=== PATIENT | male | born 1990 | race Caucasian/White ===

== ENCOUNTER 2022-02-06 14:44 | Inpatient (IN) | payer MEDICAID ==
[~2022-02-06] VITALS: Ht 185.4 cm; Wt 66.7 kg
[~2022-02-06 14:44] MED LIST: PROP10TA10 PO; RISP3TAB35 PO; TRAZ150T80 PO
[2022-02-06] MEDS ORDERED: RISP2TAB45 PO (15:01)
[2022-02-06] MEDS ORDERED: [UNRECOGNIZED DRUG - OTHER] PO (15:01)
[2022-02-06 15:12] LABS: BASOPHILS % (AUTO) 0.4 % (0.0-2.0); EOSINOPHILS % (AUTO) 0.2 % (1.0-6.0); HEMATOCRIT 33.7 % (41-53); HEMOGLOBIN 11.7 g/dL (13.5-17.5); LYMPHOCYTES # (AUTO) 2.5 K/uL (1.0-4.8); LYMPHOCYTES % (AUTO) 34.7 % (22.0-44.0); MEAN CORPUSCULAR HEMOGLOBIN 32.7 pg (26.0-34.0); MEAN CORPUSCULAR HGB CONC 34.7 G/dL (31.0-37.0); MEAN CORPUSCULAR VOLUME 94 fL (80-100); MONOCYTES # (AUTO) 0.4 K/uL (0.1-1.0); MONOCYTES % (AUTO) 5.3 % (2.0-9.0); NEUTROPHILS # (AUTO) 4.2 K/uL (1.8-7.7); NEUTROPHILS % (AUTO) 59.4 % (40.0-70.0); PLATELET COUNT (AUTO) 159 K/uL (150-450); RED BLOOD CELL COUNT(AUTO) 3.57 MIL/uL (4.50-5.90); RED CELL DISTRIBUTION WIDTH 14.7 % (11.5-14.5)
[2022-02-06 16:47] LABS: AMPHET/METH SCREEN,URINE NEGATIVE (NEGATIVE); BARBITURATE SCREEN, URINE NEGATIVE (NEGATIVE); BENZODIAZEPINES SCREEN,URINE NEGATIVE (NEGATIVE); CANNABINOID SCREEN,URINE NEGATIVE (NEGATIVE); COCAINE SCREEN,URINE NEGATIVE (NEGATIVE); METHADONE SCREEN, URINE NEGATIVE (NEGATIVE); OPIATE SCREEN,URINE NEGATIVE (NEGATIVE)
[2022-02-06 16:49] LABS: PHENCYCLIDINE SCREEN,URINE NEGATIVE (NEGATIVE)
[2022-02-06 17:20] LABS: ANION GAP 7 mmol/L (8-16); CALCIUM, TOTAL 8.3 mg/dL (8.8-10.5); CARBON DIOXIDE 30 mmol/L (22-29); CHLORIDE 100 mmol/L (98-107); CREATININE 0.86 mg/dL (0.60-1.30); GLUCOSE,RANDOM 66 mg/dL (70-110); SODIUM SERUM 137 mmol/L (136-145); UREA NITROGEN, BLOOD 15 mg/dL (7-18)
[2022-02-06 17:21] LABS: GLOMERULAR FILTR. RATE CALC > 60 mL/min (>60)
[2022-02-06 17:26] LABS: ALANINE AMINOTRANSFERASE 43 U/L (12-78); ALBUMIN 2.9 g/dL (3.4-5.0); ALKALINE PHOSPHATASE 88 U/L (46-116); ASPARTATE AMINOTRANSFERASE 45 U/L (15-37); BILIRUBIN,TOTAL 0.3 mg/dL (0.1-1.0); TOTAL PROTEIN, SERUM 6.3 g/dL (6.4-8.2)
[2022-02-06 18:37] LABS: COVID AG,FIA SOURCE NASAL SWAB
[2022-02-06] MEDS ORDERED: ZOLPIDEM TARTRATE 10 MG TABLET PO PRN (19:00)
[2022-02-06] MEDS ORDERED: LORazepam 2 MG TABLET PO PRN (19:00)
[2022-02-06 21:42] LABS: APPEARANCE,URINE CLEAR (CLEAR); BILIRUBIN,URINE NEGATIVE (NEGATIVE); GLUCOSE, URINE (UA) NEGATIVE (NEGATIVE); KETONES,URINE NEGATIVE (NEGATIVE); LEUKOCYTE ESTERASE ,URINE NEGATIVE (NEGATIVE); NITRATE,URINE NEGATIVE (NEGATIVE); OCCULT BLOOD,URINE NEGATIVE (NEGATIVE); PH,URINE 6.5 (5.0-8.0); PROTEIN,URINE NEGATIVE (NEGATIVE); SPECIFIC GRAVITIY, URINE 1.008 (1.003-1.030); UROBILINOGEN,URINE <=1.0 mg/dL (<=1.0)
[2022-02-06 23:58] VITALS: BP 139/86
[2022-02-07] MEDS ORDERED: ONDANSETRON HCL 4 MG TABLET PO PRN (06:45)
[2022-02-07] MEDS ORDERED: ALBUTEROL SULFATE HFA 90 MCG/PUFF 8 GM INHALER IH PRN (06:45)
[2022-02-07] MEDS ORDERED: MAGNESIUM HYDROXIDE SUSPENSION 30 ML UDCUP PO PRN (06:45)
[2022-02-07] MEDS ORDERED: PETROLATUM,WHITE 28 GM JELLY TP PRN (06:45)
[2022-02-07] MEDS ORDERED: CloNIDine HCL 0.1 MG TABLET PO PRN (06:45)
[2022-02-07] MEDS ORDERED: GuaiFENesin/D-METHORPHAN [SUGAR-FREE] 200-20MG/10 ML SYRUP UDCUP PO PRN (06:45)
[2022-02-07] MEDS ORDERED: NICOTINE 14 MG/24 HOUR PATCH TD PRN (06:45)
[2022-02-07] MEDS ORDERED: DOCUSATE SODIUM 100 MG CAPSULE PO PRN (06:45)
[2022-02-07] MEDS ORDERED: IBUPROFEN 400 MG TABLET PO PRN (06:45)
[2022-02-07] MEDS ORDERED: LOPERAMIDE HCL 2 MG CAPSULE PO PRN (06:45)
[2022-02-07] MEDS ORDERED: ACETAMINOPHEN 325 MG TABLET PO PRN (06:45)
[2022-02-07] MEDS ORDERED: MAG HYDROX/AL HYDROX/SIMETH ES 30 ML SUSPENSION UDCUP PO PRN (06:45)
[2022-02-07 09:00] VITALS: BP 110/59
[2022-02-07] MEDS: BACITRACIN 28 GM OINTMENT TP SCH ×2 (09:24→16:35)
[2022-02-07] MEDS: RisperiDONE 2 MG TABLET PO SCH ×2 (12:15→20:52)
[2022-02-07 13:00] VITALS: BP 116/68
[2022-02-07 16:00] VITALS: BP 128/90
[2022-02-08 08:33] VITALS: BP 112/73
[2022-02-08] MEDS: RisperiDONE 2 MG TABLET PO SCH ×2 (08:56→20:07)
[2022-02-08] MEDS: BACITRACIN 28 GM OINTMENT TP SCH ×2 (08:57→16:21)
[2022-02-08 16:17] VITALS: BP 125/80
[2022-02-09 08:43] VITALS: BP 114/72
[2022-02-09] MEDS: BACITRACIN 28 GM OINTMENT TP SCH ×2 (09:23→17:44)
[2022-02-09] MEDS: RisperiDONE 2 MG TABLET PO SCH ×2 (09:23→20:31)
[2022-02-09 16:07] VITALS: BP 117/68
[2022-02-10 08:37] VITALS: BP 143/80
[2022-02-10] MEDS: RisperiDONE 2 MG TABLET PO SCH ×2 (09:37→20:49)
[2022-02-10] MEDS: BACITRACIN 28 GM OINTMENT TP SCH ×2 (09:38→16:12)
[2022-02-10 16:14] VITALS: BP 111/70
[2022-02-11 08:31] VITALS: BP 128/77
[2022-02-11] MEDS: RisperiDONE 2 MG TABLET PO SCH ×2 (09:31→20:47)
[2022-02-11] MEDS: BACITRACIN 28 GM OINTMENT TP SCH ×2 (09:31→15:21)
[2022-02-11 16:11] VITALS: BP 111/61
[2022-02-12 07:13] LABS: COVID AG,FIA SOURCE NASAL SWAB
[2022-02-12] MEDS: RisperiDONE 2 MG TABLET PO SCH ×2 (08:58→20:27)
[2022-02-12] MEDS: BACITRACIN 28 GM OINTMENT TP SCH ×2 (08:58→16:37)
[2022-02-12 09:15] VITALS: BP 117/68
[2022-02-13 09:00] VITALS: BP 105/56
[2022-02-13] MEDS: BACITRACIN 28 GM OINTMENT TP SCH ×2 (09:12→16:54)
[2022-02-13] MEDS: RisperiDONE 2 MG TABLET PO SCH ×2 (09:12→20:23)
[2022-02-13 16:16] VITALS: BP 103/63
[2022-02-14] MEDS: BACITRACIN 28 GM OINTMENT TP SCH ×2 (07:56→16:36)
[2022-02-14] MEDS: RisperiDONE 2 MG TABLET PO SCH ×2 (07:56→20:53)
[2022-02-14 09:23] VITALS: BP 132/66
[2022-02-14 16:42] VITALS: BP 112/61
[2022-02-15 03:30] VITALS: BP 107/64
[2022-02-15 08:22] VITALS: BP 114/65
[2022-02-15] MEDS: RisperiDONE 2 MG TABLET PO SCH ×2 (08:24→20:47)
[2022-02-15 19:36] VITALS: BP 105/60
[2022-02-16] MEDS: RisperiDONE 2 MG TABLET PO SCH ×2 (08:07→20:55)
[2022-02-16 09:45] VITALS: BP 103/63
[2022-02-16 16:24] VITALS: BP 99/69
[2022-02-17 00:06] VITALS: BP 111/62
[2022-02-17] MEDS: RisperiDONE 2 MG TABLET PO SCH ×2 (08:53→20:54)
[2022-02-17 08:59] VITALS: BP 106/67
[2022-02-17 16:09] VITALS: BP 121/69
[2022-02-18] MEDS: RisperiDONE 2 MG TABLET PO SCH ×2 (08:19→20:52)
[2022-02-18 08:54] VITALS: BP 125/72
[2022-02-18 16:40] VITALS: BP 116/73
[2022-02-19 08:25] LABS: COVID AG,FIA SOURCE NASAL SWAB
[2022-02-19] MEDS: RisperiDONE 2 MG TABLET PO SCH ×2 (08:28→20:20)
[2022-02-19 08:30] VITALS: BP 109/67
[2022-02-19 16:24] VITALS: BP 100/81
[2022-02-20 08:20] VITALS: BP 123/75
[2022-02-20] MEDS: RisperiDONE 2 MG TABLET PO SCH ×2 (08:59→20:23)
[2022-02-20 16:15] VITALS: BP 111/67
[2022-02-20 16:26] VITALS: BP 111/67
[2022-02-21 08:02] VITALS: BP 110/67
[2022-02-21] MEDS: RisperiDONE 2 MG TABLET PO SCH ×2 (08:27→20:38)
[2022-02-21 16:47] VITALS: BP 101/60
[2022-02-22 08:38] VITALS: BP 110/60
[2022-02-22] MEDS: RisperiDONE 2 MG TABLET PO SCH ×2 (09:16→21:03)
[2022-02-22] MEDS: HALOPERIDOL 5 MG TABLET PO PRN (21:03)
[2022-02-23 08:00] VITALS: BP 127/74
[2022-02-23] MEDS: RisperiDONE 2 MG TABLET PO SCH ×2 (09:41→20:19)
[2022-02-23 16:00] VITALS: BP 94/59
[2022-02-24] MEDS: RisperiDONE 2 MG TABLET PO SCH ×2 (08:01→20:44)
[2022-02-24 16:00] VITALS: BP 98/56
[2022-02-25] MEDS: RisperiDONE 2 MG TABLET PO SCH ×2 (08:37→20:13)
[2022-02-25 09:14] VITALS: BP 117/72
[2022-02-25 16:00] VITALS: BP 110/66
[2022-02-25 22:34] VITALS: BP 122/70
[2022-02-26 08:28] VITALS: BP 113/72
[2022-02-26] MEDS: RisperiDONE 2 MG TABLET PO SCH ×2 (08:31→20:58)
[2022-02-26 10:43] LABS: COVID AG,FIA SOURCE NASAL SWAB
[2022-02-26] MEDS: HALOPERIDOL 5 MG TABLET PO PRN (20:58)
[2022-02-27] MEDS: RisperiDONE 2 MG TABLET PO SCH ×2 (08:28→20:20)
[2022-02-27 08:30] VITALS: BP 109/61
[2022-02-27 16:00] VITALS: BP 106/59
[2022-02-28 08:52] VITALS: BP 109/68
[2022-02-28] MEDS: RisperiDONE 2 MG TABLET PO SCH ×2 (10:11→20:56)
[2022-02-28 16:12] VITALS: BP 100/77
[2022-03-01 08:01] VITALS: BP 102/64
[2022-03-01] MEDS: RisperiDONE 2 MG TABLET PO SCH ×2 (08:25→20:51)
[2022-03-01 16:47] VITALS: BP 107/61
[2022-03-02 08:00] VITALS: BP 104/64
[2022-03-02] MEDS: RisperiDONE 2 MG TABLET PO SCH ×2 (08:51→20:29)
[2022-03-02 16:06] VITALS: BP 110/70
[2022-03-03 08:00] VITALS: BP 130/72
[2022-03-03] MEDS: RisperiDONE 2 MG TABLET PO SCH ×2 (08:06→20:18)
[2022-03-03 10:59] LABS: COVID AG,FIA SOURCE NASAL SWAB
[2022-03-03] MEDS ORDERED: RISP2TAB86 PO (15:37)
[2022-03-03 16:21] VITALS: BP 99/69
[2022-03-04] MEDS: RisperiDONE 2 MG TABLET PO SCH (08:14)
== END 2022-03-04 08:20 | disposition home or self-care (01) | DRG 750 ==
LOC: EMS 15:05 → 3EI 21:42
PROVIDERS: ADMIT Psychiatry & Neurology Psychiatry; ATTEND Psychiatry & Neurology Psychiatry
DX: F20.0 Paranoid schizophrenia (principal); E43 Unspecified severe protein-calorie malnutrition; D64.9 Anemia, unspecified; J45.901 Unspecified asthma with (acute) exacerbation; Z20.822 Contact with and (suspected) exposure to COVID-19; Z68.1 Body mass index [BMI] 19.9 or less, adult; Z59.00 Homelessness unspecified; Z79.899 Other long term (current) drug therapy; Z87.891 Personal history of nicotine dependence
CPT/HCPCS: 80053; 81003; 85025; 87081; 99285; G0480

== ENCOUNTER 2023-03-16 18:01 | Inpatient (IN) | payer MEDICAID, OTHER ==
[~2023-03-16] VITALS: Ht 185.4 cm; Wt 85.0 kg
[~2023-03-16 18:01] MED LIST changes: +PALI117D IM; -PROP10TA10 PO; -RISP3TAB35 PO; -TRAZ150T80 PO
[2023-03-16] MEDS ORDERED: RISP3TAB63 PO (18:14)
[2023-03-16 19:00] LABS: COVID AG,FIA SOURCE NASAL SWAB
[2023-03-16 19:02] LABS: BASOPHILS % (AUTO) 0.7 % (0.0-2.0); EOSINOPHILS % (AUTO) 1.7 % (1.0-6.0); HEMOGLOBIN 14.8 g/dL (13.5-17.5); LYMPHOCYTES # (AUTO) 2.8 K/uL (1.0-4.8); LYMPHOCYTES % (AUTO) 30.7 % (22.0-44.0); MEAN CORPUSCULAR HEMOGLOBIN 30.1 pg (26.0-34.0); MEAN CORPUSCULAR HGB CONC 33.6 G/dL (31.0-37.0); MEAN CORPUSCULAR VOLUME 89 fL (80-100); MONOCYTES # (AUTO) 0.4 K/uL (0.1-1.0); MONOCYTES % (AUTO) 4.5 % (2.0-9.0); NEUTROPHILS # (AUTO) 5.7 K/uL (1.8-7.7); NEUTROPHILS % (AUTO) 62.4 % (40.0-70.0); PLATELET COUNT (AUTO) 354 K/uL (150-450); RED BLOOD CELL COUNT(AUTO) 4.92 MIL/uL (4.50-5.90); RED CELL DISTRIBUTION WIDTH 13.9 % (11.5-14.5); WHITE BLOOD COUNT (AUTO) 9.1 K/uL (4.5-11.0)
[2023-03-16 19:04] LABS: SARS-COV2 (COVID) ANTIGEN,FIA Negative (Negative)
[2023-03-16 19:10] LABS: ALCOHOL, URINE DRUG SCREEN NEGATIVE (NEGATIVE); AMPHET/METH SCREEN,URINE POSITIVE (NEGATIVE); BARBITURATE SCREEN, URINE NEGATIVE (NEGATIVE); BENZODIAZEPINES SCREEN,URINE NEGATIVE (NEGATIVE); CANNABINOID SCREEN,URINE NEGATIVE (NEGATIVE); COCAINE SCREEN,URINE NEGATIVE (NEGATIVE); METHADONE SCREEN, URINE NEGATIVE (NEGATIVE); OPIATE SCREEN,URINE NEGATIVE (NEGATIVE); PHENCYCLIDINE SCREEN,URINE NEGATIVE (NEGATIVE)
[2023-03-16 19:11] LABS: ANION GAP 7 mmol/L (8-16); CALCIUM, TOTAL 9.1 mg/dL (8.8-10.5); CARBON DIOXIDE 31 mmol/L (22-29); CHLORIDE 101 mmol/L (98-107); CREATININE 1.06 mg/dL (0.60-1.30); GLOMERULAR FILTR. RATE CALC > 60 mL/min (>60); GLUCOSE,RANDOM 91 mg/dL (70-110); POTASSIUM 3.8 mmol/L (3.5-5.1); SODIUM SERUM 139 mmol/L (136-145); UREA NITROGEN, BLOOD 7 mg/dL (7-18)
[2023-03-16 19:16] LABS: ALANINE AMINOTRANSFERASE 15 U/L (12-78); ALBUMIN 3.9 g/dL (3.4-5.0); ALKALINE PHOSPHATASE 107 U/L (46-116); ASPARTATE AMINOTRANSFERASE 14 U/L (15-37); BILIRUBIN,TOTAL 0.2 mg/dL (0.1-1.0); TOTAL PROTEIN, SERUM 7.5 g/dL (6.4-8.2)
[2023-03-16 19:58] LABS: ALCOHOL, BLOOD (SERUM) < 3 mg/dL (0-10)
[2023-03-16] MEDS ORDERED: LORazepam 2 MG TABLET PO ONE (21:00)
[2023-03-16] MEDS ORDERED: RisperiDONE 1 MG TABLET PO ONE (21:00)
[2023-03-16] MEDS ORDERED: DiphenhydrAMINE HCL 25 MG CAPSULE PO ONE (21:00)
[2023-03-17] MEDS ORDERED: PNEUMOCOCCAL VACCINE POLYVALENT 0.5 ML SYRINGE [PPSV23] IM. ONE (00:30)
[2023-03-17] MEDS ORDERED: INFLUENZA VIRUS VACCINE QVS 2023-24 (6MO+)/PF 60 MCG/0.5 ML SYRINGE IM. ONE (00:30)
[2023-03-17 02:25] VITALS: BP 106/69; PULSE 94; RESP 18; TEMP 97.4
[2023-03-17 02:52] VITALS: BP 106/69; PULSE 94; RESP 18; TEMP 97.4
[2023-03-17] MEDS: RisperiDONE 3 MG TABLET PO SCH (16:38)
[2023-03-17 20:16] VITALS: BP 102/68; PULSE 68; RESP 19; TEMP 98.1
[2023-03-17] MEDS ORDERED: HALOPERIDOL 5 MG TABLET PO PRN (22:00)
[2023-03-17] MEDS ORDERED: ZOLPIDEM TARTRATE 10 MG TABLET PO PRN (22:00)
[2023-03-17] MEDS: LORazepam 2 MG TABLET PO PRN (22:04)
[2023-03-18] MEDS: RisperiDONE 3 MG TABLET PO SCH ×2 (08:17→16:23)
[2023-03-18 09:20] VITALS: BP 101/66; PULSE 94; RESP 18; TEMP 97.6
[2023-03-18 20:33] VITALS: BP 109/76; PULSE 88; RESP 16; TEMP 97.6
[2023-03-18] MEDS: LORazepam 2 MG TABLET PO PRN (21:40)
[2023-03-19 08:24] VITALS: BP 125/66; PULSE 74; RESP 16; TEMP 97.1
[2023-03-19] MEDS: RisperiDONE 3 MG TABLET PO SCH ×2 (08:57→16:32)
[2023-03-19 20:08] VITALS: BP 121/65; PULSE 103; RESP 16; TEMP 97.1
[2023-03-19] MEDS: LORazepam 2 MG TABLET PO PRN (20:11)
[2023-03-19] MEDS ORDERED: ACETAMINOPHEN 325 MG TABLET PO PRN (21:00)
[2023-03-19] MEDS ORDERED: LOPERAMIDE HCL 2 MG CAPSULE PO PRN (21:00)
[2023-03-19] MEDS ORDERED: MAG HYDROX/ALUMINUM HYD/SIMETH ES 30 ML SUSPENSION UDCUP PO PRN (21:00)
[2023-03-19] MEDS ORDERED: ONDANSETRON HCL 4 MG TABLET PO PRN (21:00)
[2023-03-19] MEDS ORDERED: MAGNESIUM HYDROXIDE SUSPENSION 30 ML UDCUP PO PRN (21:00)
[2023-03-19] MEDS ORDERED: PETROLATUM,WHITE 28 GM JELLY TP PRN (21:00)
[2023-03-19] MEDS ORDERED: NICOTINE 14 MG/24 HOUR PATCH TD PRN (21:00)
[2023-03-19] MEDS ORDERED: IBUPROFEN 400 MG TABLET PO PRN (21:00)
[2023-03-19] MEDS ORDERED: CloNIDine HCL 0.1 MG TABLET PO PRN (21:00)
[2023-03-19] MEDS ORDERED: ALBUTEROL SULFATE HFA 90 MCG/PUFF 8 GM INHALER IH PRN (21:00)
[2023-03-19] MEDS ORDERED: DOCUSATE SODIUM 100 MG CAPSULE PO PRN (21:00)
[2023-03-19] MEDS ORDERED: GuaiFENesin/D-METHORPHAN [SUGAR-FREE] 200-20MG/10 ML SYRUP UDCUP PO PRN (21:00)
[2023-03-19 21:30] VITALS: RESP 18
[2023-03-19 22:30] VITALS: RESP 18
[2023-03-20 08:48] VITALS: BP 111/60; PULSE 75; RESP 18; TEMP 98
[2023-03-20] MEDS: RisperiDONE 3 MG TABLET PO SCH ×2 (09:17→16:21)
[2023-03-20] MEDS ORDERED: RISP3TAB63 PO (15:32)
== END 2023-03-20 16:55 | disposition home or self-care (01) | DRG 750 ==
LOC: EMS 19:03 → B2S 21:39
PROVIDERS: ADMIT Psychiatry & Neurology Psychiatry; ATTEND Psychiatry & Neurology Psychiatry
PROC: GZHZZZZ Group Psychotherapy (ICD-10-PCS; principal; 2023-03-16)
DX: F20.0 Paranoid schizophrenia (principal); R45.851 Suicidal ideations; F31.9 Bipolar disorder, unspecified; J45.909 Unspecified asthma, uncomplicated; Z20.822 Contact with and (suspected) exposure to COVID-19; F41.9 Anxiety disorder, unspecified; G47.00 Insomnia, unspecified; F15.10 Other stimulant abuse, uncomplicated; Z79.899 Other long term (current) drug therapy; Z87.891 Personal history of nicotine dependence
CPT/HCPCS: 80053; 80307; 85025; 87081; 99285; G0480

== ENCOUNTER 2023-12-20 09:50 | Emergency (ER) | payer MEDICAID, OTHER ==
[~2023-12-20] VITALS: Ht 177.8 cm; Wt 77.2 kg
[~2023-12-20 09:50] MED LIST changes: -PALI117D IM; +RISP3TAB77 PO
[2023-12-20 10:32] VITALS: BP 132/76; PULSE 81; RESP 19; TEMP 97.1; O2SAT 96
[2023-12-20] MEDS ORDERED: OFLO5DRO4 AS (10:52)
== END 2023-12-20 11:08 | disposition home or self-care (01) ==
LOC: EMS 09:50
DX: H60.92 Unspecified otitis externa, left ear (principal); R07.9 Chest pain, unspecified; R11.2 Nausea with vomiting, unspecified; F20.9 Schizophrenia, unspecified; J45.909 Unspecified asthma, uncomplicated; F15.10 Other stimulant abuse, uncomplicated; F17.210 Nicotine dependence, cigarettes, uncomplicated
CPT/HCPCS: 99283; 99406